=== PATIENT | male | born 1970 | race Caucasian/White ===

== ENCOUNTER 2018-11-26 19:39 | Emergency (ER) | payer SELFPAY ==
[~2018-11-26] VITALS: Ht 193 cm; Wt 80.3 kg
--- NOTE | 2018-11-26 19:53 | NUR ---
PT CALLED AND NOT IN LOBBY AT THIS TIME
[2018-11-26 20:09] VITALS: BP 112/70
--- NOTE | 2018-11-26 20:44 | NUR ---
PT IN GOWN IN [facility] WITH FAMILY AND JOHN FLORES AT . PT ATTACHED TO VS MACHINES. VSS. AWAITING NEW ORDERS AT THIS TIME.
[2018-11-26] MEDS ORDERED: DIPH,PERTUSS(ACELL),TET VAC/PF 0.5 ML IM-VACC ONE ×2 (21:00→21:18)
[2018-11-26] MEDS ORDERED: LIDOCAINE-MPF 1%, 5ML INFIL ONE (21:00)
[2018-11-26] MEDS ORDERED: LIDOCAINE-MPF 1%, 2ML ONE (21:18)
--- NOTE | 2018-11-26 21:42 | NUR ---
PT MEDICATED WITH TDAP. AWAITING ERP FOR I&D
--- NOTE | 2018-11-26 22:00 | NUR ---
JOHN PHAM AT BS FOR I&D
--- NOTE | 2018-11-26 22:18 | NUR ---
PT WOUNDS DRESSED PER ERP REQUEST. PT DENIES ANY OTHER NEEDS PERTAINING TO THIS VISIT. PT AMBULATES TO REGISTRATION DESK WITH STEADY GAIT FOR D/C HOME.
== END 2018-11-26 22:21 | disposition home or self-care (01) ==
LOC: ED 21:56
DX: L02.512 Cutaneous abscess of left hand (principal)
CPT/HCPCS: 10061; 90471; 90715; 99284

== ENCOUNTER 2021-02-19 22:00 | Emergency (ER) | payer MEDICAID ==
[~2021-02-19] VITALS: Ht 193 cm; Wt 88.6 kg
[2021-02-20 00:04] VITALS: BP 145/62
--- NOTE | 2021-02-20 00:04 | NUR ---
Patient given discharge instructions and they have confirmed that they understand the instructions. Patient ambulatory with steady gait. NAD, all questions answered appropriately, denies additional needs at this time. No personal belongings left in room after discharge.
== END 2021-02-20 00:06 | disposition home or self-care (01) ==
LOC: ED 02-20
DX: K04.7 Periapical abscess without sinus (principal); K01.1 Impacted teeth
CPT/HCPCS: 99283